=== PATIENT | female | born 1960 | race Hispanic/Latino ===

== ENCOUNTER 2025-02-09 18:06 | Emergency (ER) | payer OTHER ==
[~2025-02-09] VITALS: Ht 167.6 cm; Wt 59.0 kg
[2025-02-09] MEDS: SODIUM CHLORIDE 0.9% 1000ML 1,000 ML IV ONE (18:53)
[2025-02-09 19:09] LABS: BASOPHILS % 0.7 % (0.0-1.0); EOSINOPHILS % 4.9 % (0.0-6.0); LYMPHOCYTES % 34.0 % (18.0-39.1); MONOCYTES % 6.2 % (4.4-11.3); NEUTROPHILS % 53.3 % (38.7-80.0); RED CELL DISTRIBUTION WIDTH 11.9 % (11.7-14.4)
[2025-02-09 19:26] LABS: INR 1.04
[2025-02-09 19:34] LABS: EST GLOMERULAR FILTRATION RATE 89 ML/MIN (>=60)
[2025-02-09 20:15] VITALS: PULSE 77; RESP 18; TEMP 97.7; O2SAT 99
[2025-02-09] MEDS ORDERED: BENZONATATE200 MG PO (20:22)
== END 2025-02-09 20:53 | disposition home or self-care (01) ==
LOC: ER 18:15
DX: U09.9 Post COVID-19 condition, unspecified (principal); R07.89 Other chest pain; R05.9 Cough, unspecified
CPT/HCPCS: 36415; 71045; 80053; 82550; 83880; 84484; 85025; 85610; 85730; 93005; 99284; J7030